=== PATIENT | female | born 1985 | race Caucasian/White ===

== ENCOUNTER 2016-09-17 04:24 | Day surgery (SDC) | payer BC ==
--- NOTE | ~2016-09-17 | OP ---
Record Of Operation [facility] [address] [place]. [address] NAME: OSWALD WOOD : 81 STATUS : [facility]#: [id number] AGE: 30 ADM/REG DATE : 09/17/16 MR#: [id number] REPORT SERV DATE: 09/18/16 DICTATED BY: HETAL LIU II DATE: 09/18/16 REPORT STATUS : Draft TRANSCRIBED BY: CANDY DATE: 09/18/16 DATE OF PROCEDURE: 09/17/2016 PREOPERATIVE DIAGNOSES: 1. Right far lateral herniated nucleus pulposus. 2. Right lower extremity L3 radiculopathy. POSTOPERATIVE DIAGNOSES: 1. Right far lateral herniated nucleus pulposus. 2. Right lower extremity L3 radiculopathy. 3. Right L3-4 disk osteophyte complex. PROCEDURES: 1. Right far lateral microdiskectomy. 2. Use of the microscope and stereotactic spinal imaging. FLUIDS: 1500 mL LR. ESTIMATED BLOOD LOSS: 15 mL. DRAINS: None. COMPLICATIONS: None. ANTIBIOTIC: Preoperatively. PREOPERATIVE HISTORY: This is a very friendly 30-year-old female, who reports significant pain radiating in the buttock and thigh. She was found to have a very far lateral HNP with L3 nerve root compression which was consistent with her dermatomal pattern of pain. We discussed the pros and cons of the surgery. Specifically, I discussed with her and her family the more peculiar nature of this type of herniation with compression upon the dorsal root ganglion. We discussed the more variable results compared to the more traditional herniation within the canal. I discussed with them the risks of the surgery as well as the benefits. DESCRIPTION OF PROCEDURE: After informed consent was obtained, the patient was brought to the operating room at her request, and general anesthesia was achieved. She was placed in the prone position. The back was prepped and draped in the sterile fashion. The stereotactic spinal pin was placed into the left iliac crest and the intraoperative CT scan completed. The minimally invasive incision was now performed on the right at L3-4 using stereotactic guidance. The quadrant retractor was placed to overlie the transverse processes at L3 and L4. Specifically, the pars was now well-identified and the soft tissue was removed along the pars. Next, the intertransverse membrane was released from the lateral aspect of the pars and the transverse processes. At this point, the L3 nerve root was then identified. It was significantly edematous. Next, the bipolar electrocautery was used to identify the lateral portion of the disk space. The CT scan itself as well as Record Of Operation [address] [place] [id number] NAME: OSWALD WOOD : 81 STATUS : [facility] PAT#: [id number] AGE: 30 ADM/REG DATE : 09/17/16 MR#: [id number] REPORT SERV DATE: 09/18/16 DICTATED BY: HETAL LIU II DATE: 09/18/16 REPORT STATUS : Draft TRANSCRIBED BY: CANDY DATE: 09/18/16 intraoperative confirmation did reveal a significant osteophytic formation along the lateral portion of the disk space. This overall essentially formed a disk osteophyte complex contributing to the L3 nerve root compression. There was a small soft disk component, but it was overall largely osteophytic. At this point, the L3 nerve root was again well- decompressed from its takeoff point from the canal out through the lateral zone. At this point, the area was irrigated followed by confirmation of hemostasis. Standard closure was performed. The patient was extubated and transferred to the PACU in stable condition. YENY/CANDY Hetal Liu II, M.D. / [id number] CC: Lucia Castro II, D.O.
[~2016-09-17 04:24] MED LIST: ENDOCET1 TA1 PO
== END 2016-09-17 17:26 | disposition home or self-care (01) ==
LOC: SDC 04:24
PROVIDERS: Orthopaedic Surgery
PROC: 01NB0ZZ Release Lumbar Nerve, Open Approach (ICD-10-PCS; 2016-09-17)
PROC: 0SB20ZZ Excision of Lumbar Vertebral Disc, Open Approach (ICD-10-PCS; principal; 2016-09-17 05:45)
DX: M51.16 Intervertebral disc disorders with radiculopathy, lumbar region (principal); K52.9 Noninfective gastroenteritis and colitis, unspecified; Z90.49 Acquired absence of other specified parts of digestive tract; Z79.891 Long term (current) use of opiate analgesic; Z98.890 Other specified postprocedural states
CPT/HCPCS: 84703; 88304; 88311; A9270-GY; J0690; J1030; J1885; J2250; J2270; J2405; J2550; J2710; J3010